=== PATIENT | male | born 1995 | race African-American/Black ===

== ENCOUNTER → 2022-04-21 07:39 | Outpatient (CLI) | payer OTHER, SELFPAY ==
--- NOTE | 2022-04-21 | DI.MRI.S_ITS ---
PROCEDURE: MR KNEE LT WO CON INDICATIONS: PAIN IN LEFT KNEE TECHNIQUE: Noncontrast sagittal PD fast spin echo and T2 fast spin echo with fat saturation, sagittal 3-D FLASH with fat saturation; coronal T1 spin echo and PD fast spin echo with fat saturation, and axial PD fast spin echo with fat saturation through the knee. COMPARISON: None. FINDINGS: Image quality: Excellent. Anterior Cruciate Ligament: Intact. Posterior Cruciate Ligament: Intact. Medial Collateral Ligament: Intact. Lateral Collateral Ligament: Intact. Medial Meniscus: Intact. Lateral Meniscus: Intact. Medial and Lateral Tendons: The semimembranosus tendon insertions and meniscocapsular junction appear intact. Visualized portions of the pes anserinus tendons appear normal. No abnormal bursal fluid. The long and short heads of the biceps femoris tendon appear intact. The popliteus tendon appears intact. No signs of posterolateral corner injury. Iliotibial band appears normal. Anterior Structures: There is patella stephanie. No lateral patellar subluxation is seen. The distal quadriceps tendon is intact. There is prominent edema and mild fluid at the superolateral aspect of Hoffa's fat pad, which can be seen in the setting of lateral femoral condyle-patellar tendon friction syndrome. Bones: No acute trabecular bone injury or fracture. Medial Femorotibial Cartilage: Intact. Lateral Femorotibial Cartilage: Intact. Patellofemoral Cartilage: Focal high-grade cartilage irregularity is seen at the medial patellar facet with mild subchondral edema. Soft Tissues: A physiologic amount of joint fluid is present. Small medial popliteal cyst. The musculature surrounding the knee is normal in bulk. IMPRESSION: 1. Patella stephanie. Prominent edema at the superolateral aspect of Hoffa's fat pad can be seen in the setting of lateral femoral condyle-patellar tendon friction syndrome. 2. Intact cruciate and collateral ligaments. No acute trabecular bone injury. No meniscal tear is seen. 3. Small medial popliteal cyst. Dictated by: Narendra Barajas M.D. on 04/21/2022 at 9:56 Approved by: Narendra Barajas M.D. on 04/21/2022 at 10:03
== END ==
PROVIDERS: Referring Provider Student in an Organized Health Care Education/Training Program; Visit Provider Student in an Organized Health Care Education/Training Program
DX: M22.8X2 Other disorders of patella, left knee (principal); M25.562 Pain in left knee; M71.22 Synovial cyst of popliteal space [Baker], left knee
CPT/HCPCS: 73721